=== PATIENT | female | born 1940 | race Caucasian/White ===

== ENCOUNTER 2017-06-20 23:18 | Emergency (ER) | payer SELFPAY ==
[~2017-06-20] VITALS: Ht 160 cm; Wt 64.0 kg
[~2017-06-20 23:18] MED LIST: VALS160T2 PO
[2017-06-21 00:43] LABS: BASOPHILS % 2.7 % (0.0-2.0); EOSINOPHILS % 2.7 % (0.0-5.0); HEMOGLOBIN. 10.1 g/dL (12.0-16.0); MEAN CORPUSCULAR HEMOGLOBIN 38.3 pg (28.0-32.0); MEAN CORPUSCULAR VOLUME 110.3 fL (81.0-99.0); MEAN PLATELET VOLUME 8.2 fl (7.4-10.4); MONOCYTES % 12.4 % (2.0-8.0); NEUTROPHILS % 57.2 % (40.0-76.0); PLATELET 653 x1000/uL (130-400); RED BLOOD CELL COUNT 2.63 mill/uL (4.2-5.4); RED CELL DISTRIBUTION WIDTH 14.3 % (11.6-14.6)
[2017-06-21 00:57] LABS: CARBON DIOXIDE 26 mEq/L (21-32); CHLORIDE 109 mEq/L (98-107); TROPONIN I < 0.02 ng/mL (0.00-0.04)
[2017-06-21 01:23] LABS: PLATELET ESTIMATE INCREASED
[2017-06-21 01:45] VITALS: BP 143/74
== END 2017-06-21 01:52 | disposition home or self-care (01) ==
LOC: ER 23:20
DX: R07.89 Other chest pain (principal); I25.10 Atherosclerotic heart disease of native coronary artery without angina pectoris; I10 Essential (primary) hypertension
CPT/HCPCS: 36415; 71010; 80053; 84484; 85025; 93005; 99285

== ENCOUNTER 2017-10-15 05:30 | Inpatient (IN) | payer SELFPAY ==
[~2017-10-15] VITALS: Ht 152.4 cm; Wt 70.8 kg
[2017-10-15] MEDS ORDERED: MORPHINE SULFATE 4 MG/ML CPJ (NOT FOR IM USE) IV STA (06:01)
[2017-10-15] MEDS ORDERED: ONDANSETRON HCL 4MG/2ML VIAL IV STA (06:01)
[2017-10-15] MEDS ORDERED: FAMOTIDINE 20MG/2ML VIAL IV STA (06:01)
[2017-10-15] MEDS ORDERED: SODIUM CHLORIDE 0.9% 1,000 ML IV ONE (06:01)
[2017-10-15 06:44] LABS: HEMATOCRIT. 31.9 % (36.0-48.0); HEMOGLOBIN. 10.8 g/dL (12.0-16.0); INR 1.1; MEAN CORPUSCULAR HEMOGLOBIN 38.2 pg (28.0-32.0); MEAN CORPUSCULAR VOLUME 112.5 fL (81.0-99.0); MEAN PLATELET VOLUME 8.3 fl (7.4-10.4); PLATELET 702 x1000/uL (130-400); PROTHROMBIN TIME 10.9 sec (9.4-11.6); RED BLOOD CELL COUNT 2.84 mill/uL (4.2-5.4); RED CELL DISTRIBUTION WIDTH 15.6 % (11.6-14.6)
[2017-10-15 06:59] LABS: CARBON DIOXIDE 25 mEq/L (21-32); CHLORIDE 108 mEq/L (98-107); TROPONIN I < 0.02 ng/mL (0.00-0.04)
[2017-10-15 07:02] LABS: CLARITY URINE TURBID (CLEAR); COLOR URINE DARK YELLOW (YELLOW); KETONES URINE NEGATIVE (NEGATIVE); LEUKOCYTE ESTERASE URINE NEGATIVE (NEGATIVE); NITRITE URINE POSITIVE (NEGATIVE); OCCULT BLOOD URINE 1+ (NEGATIVE); PROTEIN URINE 1+ (NEGATIVE); SPECIFIC GRAVITY URINE 1.008 (1.005-1.030)
[2017-10-15 08:09] LABS: PLATELET ESTIMATE MARKEDLY INCREASED
[2017-10-15] MEDS ORDERED: CEFTRIAXONE 2 G PREMIX 50 ML IV ONE (08:45)
[2017-10-15] MEDS ORDERED: LORAZEPAM 2MG/ML CPJ IV PRN (09:00)
[2017-10-15] MEDS ORDERED: ACETAMINOPHEN 325MG TABLET PO PRN (09:00)
[2017-10-15] MEDS ORDERED: CLONIDINE 0.1MG TABLET PO PRN (09:00)
[2017-10-15] MEDS ORDERED: HYDROCODONE/APAP 7.5/325MG 1 TAB TABLET PO PRN (09:00)
[2017-10-15] MEDS ORDERED: NA PHOS,M-B/NA PHOS,DI-BA ENEMA 118ML PR PRN (09:00)
[2017-10-15] MEDS ORDERED: IPRATROPIUM/ALBUTEROL 0.5-3(2.5)MG/3ML NEB INH PRN (09:00)
[2017-10-15] MEDS ORDERED: GUAIFENESIN 200MG/10ML SUGAR FREE UDC PO PRN (09:00)
[2017-10-15] MEDS ORDERED: ONDANSETRON HCL 4MG/2ML VIAL IV PRN (09:00)
[2017-10-15] MEDS ORDERED: DOCUSATE SODIUM 100MG CAPSULE PO PRN (09:00)
[2017-10-15] MEDS ORDERED: DIPHENHYDRAMINE 50MG/ML VIAL IV PRN (09:00)
[2017-10-15] MEDS ORDERED: MORPHINE SULFATE 2 MG/ML CPJ (NOT FOR IM USE) IV PRN (09:00)
[2017-10-15] MEDS ORDERED: MAGNESIUM/ALUMINUM HYDROXIDE/SIMETHICONE 30ML UDC PO PRN (09:00)
[2017-10-15] MEDS ORDERED: IOHEXOL-300 100 ML BOTTLE ONE (09:34)
[2017-10-15 12:00] VITALS: BP 144/77
[2017-10-15] MEDS: SODIUM CHLORIDE 0.45% 1,000 ML IV SCH (12:02)
[2017-10-15] MEDS: ENOXAPARIN 40MG/0.4ML SYR SUBCUT SCH (12:02)
[2017-10-15] MEDS ORDERED: [UNRECOGNIZED DRUG - CODE] PO ×2 (12:27)
[2017-10-15] MEDS ORDERED: ASPI-1159 PO (12:27)
[2017-10-15] MEDS ORDERED: HYDR500C PO ×2 (12:27)
[2017-10-15 16:00] VITALS: BP 152/71
[2017-10-15] MEDS ORDERED: ANAGRELIDE 0.5 MG PO SCH (17:00)
[2017-10-15] MEDS ORDERED: HYDROXYUREA 500MG CAPSULE PO SCH (17:00)
[2017-10-15] MEDS: HYDROXYUREA 500MG CAPSULE PO SCH (18:05)
[2017-10-15 20:00] VITALS: BP 143/70
[2017-10-16 00:20] VITALS: BP 136/83
[2017-10-16 04:00] VITALS: BP 121/63
[2017-10-16] MEDS: SODIUM CHLORIDE 0.45% 1,000 ML IV SCH (05:12)
[2017-10-16 07:21] LABS: BASOPHILS % 0.8 % (0.0-2.0); EOSINOPHILS % 1.3 % (0.0-5.0); HEMATOCRIT. 29.3 % (36.0-48.0); HEMOGLOBIN. 10.1 g/dL (12.0-16.0); LYMPHOCYTES % 15.8 % (20.0-50.0); MEAN CORPUSCULAR HEMOGLOBIN 38.9 pg (28.0-32.0); MEAN CORPUSCULAR VOLUME 112.6 fL (81.0-99.0); MEAN PLATELET VOLUME 8.2 fl (7.4-10.4); MONOCYTES % 14.6 % (2.0-8.0); NEUTROPHILS % 67.5 % (40.0-76.0); PLATELET 549 x1000/uL (130-400); RED BLOOD CELL COUNT 2.61 mill/uL (4.2-5.4); RED CELL DISTRIBUTION WIDTH 15.8 % (11.6-14.6)
[2017-10-16 08:00] VITALS: BP 134/71
[2017-10-16] MEDS: HYDROXYUREA 500MG CAPSULE PO SCH (08:26)
[2017-10-16] MEDS ORDERED: LOSARTAN POTASSIUM 100 MG TABLET PO SCH (09:00)
[2017-10-16] MEDS ORDERED: ASPIRIN 81MG EC TABLET PO SCH (09:00)
[2017-10-16 09:29] LABS: CARBON DIOXIDE 23 mEq/L (21-32); CHLORIDE 109 mEq/L (98-107); HDL CHOLESTEROL 47 mg/dL (40-59); LDL CHOLESTEROL 86 mg/dL (5-100)
[2017-10-16] MEDS ORDERED: POTASSIUM CHLORIDE 20MEQ TABLET SR PO NR (10:45)
[2017-10-16] MEDS: ENOXAPARIN 40MG/0.4ML SYR SUBCUT SCH (12:31)
[2017-10-16 12:58] VITALS: BP 134/68
== END 2017-10-16 14:30 | disposition home or self-care (01) | DRG 463 ==
LOC: ER 05:30 → 6EST 08:51 → ENRESERV 09:24
PROVIDERS: ADMIT Internal Medicine; ATTEND Internal Medicine
DX: N39.0 Urinary tract infection, site not specified (principal); N17.9 Acute kidney failure, unspecified; E86.0 Dehydration; R65.10 Systemic inflammatory response syndrome (SIRS) of non-infectious origin without acute organ dysfunction; K52.9 Noninfective gastroenteritis and colitis, unspecified; I10 Essential (primary) hypertension; Q63.1 Lobulated, fused and horseshoe kidney
CPT/HCPCS: 36415; 71010; 74177; 80053; 80061; 81001; 83605; 83690; 83880; 84484; 85025; 85610; 87040; 87077; 87086; 87186; 87804; 93005; 96361; 96374; 96375; 99285; J1650; J2270; J2405; J3490; J7030; Q9967